=== PATIENT | male | born 1990 ===

== ENCOUNTER 2018-04-24 10:55 | Emergency (ER) | payer OTHER ==
[2018-04-24 10:59] VITALS: BMI 29.9
[2018-04-24] MEDS ORDERED: Piperacillin/Tazobact 3.375 GM in Sodium Chloride 0.9% 100 ML IVPB STA (12:11)
[2018-04-24] MEDS ORDERED: Vancomycin 1 g Inj ONE (12:19)
[2018-04-24] MEDS ORDERED: Piperacillin/Tazobact 3.375 gm Inj IVPB ONE (12:19)
--- NOTE | 2018-04-24 12:21 | ED PDOC ---
HPI: Skin/Bite Injury Time Seen by Provider: 04/24/18 11:21 Chief Complaint (Nursing): Back Pain History Per: Patient, Patient Care Director ([place] [id number]) Additional Complaint(s): Pt. states since Saturday he's had pain in the lower back area. States he's had the same exact pain intermittently over the past 5 years. Pt. had area drained in the operating room by Dr. Teague 5 years ago and since then he's had the pain yearly which is usually treated with oral medications (pt. does not know what type of medications he is given). He lost insurance recently and therefore he was unable to see his PMD for this episode but yesterday he took a medication for infection and inflammation without any relief. Pt. states he developed chills last night but did not take any temperature. Also reports noticing discharge. Denies trauma, numbness, tingling. Past Medical History Reviewed: Historical Data, Nursing Documentation, Vital Signs Vital Signs: Last Vital Signs Temp 98.9 F 04/24/18 16:19 Pulse 87 04/24/18 16:19 Resp 16 04/24/18 16:19 BP 131/82 04/24/18 16:19 Pulse Ox 96 04/24/18 17:55 - Medical History PMH: Denies: Chronic Kidney Disease - Surgical History Surgical History: Back Surgery (pilonidal abscess drainage) - Family History Family History: States: No Known Family Hx - Home Medications Home Medications: Ambulatory Orders Medication Instructions Recorded Amoxicillin/Clavulanate [Augmentin 1 tab PO BID #20 tab 04/24/18 875 MG-125 MG] - Allergies Allergies/Adverse Reactions: Allergies Allergy/AdvReac Type Severity Reaction Status Date / Time No Known Allergies Allergy Verified 04/24/18 11:18 Review of Systems ROS Statement: Except As Marked, All Systems Reviewed And Found Negative Physical Exam - Physical Exam Appears: Positive for: Well, In Acute Distress (moderate painful distress) Skin: Positive for: Normal Color, Warm. Negative for: Rash Eye Exam: Positive for: Normal appearance Gastrointestinal/Abdominal: Positive for: Normal Exam, Soft. Negative for: Tenderness Back: Positive for: Other (moderate erythema and tenderness with ? fluctuance and small opening in pilonidal area) Neurologic/Psych: Positive for: Alert, Oriented - Laboratory Results Result Diagrams: 04/24/18 12:45 04/24/18 12:45 - ECG O2 Sat by Pulse Oximetry: 96 - Progress ED Course And Treament: Pt. evaluated by Dr. Menchaca in ED. Labs, zosyn IV, vancomycin IV, morphine 2mg IV, zofran 4mg ODT ordered. Pt. evaluated by Dr. Mabry, resident hall director, who performed I&D and spoke with Dr. Teague. As per Dr. Mabry pt. can be dc'd with Augmentin and f/u in [facility] surgical clinic. Disposition - Clinical Impression Clinical Impression: Pilonidal abscess - Patient ED Disposition Is Patient to be Admitted: No - Disposition Referrals: Joe Montalvo MD [Staff Provider] - Doc Teague MD [Staff Provider] - Disposition: Routine/Home Disposition Time: 15:00 Condition: STABLE Additional Instructions: Follow up with [facility] for further evaluation Return to ED immediately if symptoms worsen Prescriptions: Amoxicillin/Clavulanate [Augmentin 875 MG-125 MG] 1 tab PO BID #20 tab Instructions: Abscess Incision and Drainage (DC), Pilonidal Cyst (DC) Forms: [employer] ([place]), [facility] School/Work Excuse Print Language: POLISH
[2018-04-24 12:58] LABS: VENOUS BLOOD GAS PCO2 53 mmHg (40-60); VENOUS BLOOD GAS PO2 21 mm/Hg (30-55); VENOUS BLOOD PH 7.37 (7.32-7.43)
[2018-04-24 13:00] LABS: BASO # 0.1 K/uL (0.0-0.2); BASO % 0.6 % (0.0-2.0); EOS % 0.2 % (0.0-4.0); HEMOGLOBIN 15.3 g/dL (12.0-18.0); LYMPH # 1.6 K/uL (1.0-4.3); MEAN CELL VOLUME 88.4 fl (80.0-94.0); MEAN CORPUSCULAR HEMOGLOBIN 30.4 pg (27.0-31.0); MEAN CORPUSCULAR HGB CONC 34.4 g/dL (33.0-37.0); MONO # 1.1 K/uL (0.0-0.8); NEUT # 11.4 K/uL (1.8-7.0); NEUT % 80.2 % (50.0-75.0); RBC 5.05 Mil/uL (4.40-5.90); RED CELL DISTRIBUTION WIDTH 13.3 % (11.5-14.5); WHITE BLOOD COUNT 14.2 K/uL (4.8-10.8)
[2018-04-24 13:05] LABS: ALB/GLOB RATIO 1.1 (1.0-2.1); ALBUMIN 4.1 g/dL (3.5-5.0); ALT/SGPT 55 U/L (21-72); AST/SGOT 36 U/L (17-59); BLOOD UREA NITROGEN 14 mg/dl (9-20); CALCIUM 8.9 mg/dL (8.4-10.2); GFR AFRICAN-AMERICAN > 60; GFR NON-AFRICAN AMERICAN > 60
--- NOTE | 2018-04-24 13:12 | CP.PCM.CON ---
History of Present Illness - History of Present Illness History of Present Illness: General Surgery Consult Note 27M seen in ED complaining of pain secondary to a pilonidal cyst on his lower back. Patient states that five years ago he had surgery performed at [facility] for an infected hair follicle and subsequently developed the pilonidal cyst following the surgery. He states that the cyst has caused him intermittent discomfort since that time and occasionally drains a clear/yellow fluid. Patient states that in 2015 he went to see his PMD about the pain and drainage and was told to follow up with a specialist which he never did. He states that this past Saturday the pain and drainage from the area began to increase greatly, making it hard to walk. A malodor also became present at that time. Patient states that he has not noticed any drainage in the last two days and feels that this is due to the increased swelling in the area. He denies any further complaints at this time. He states that over the last 48 hours he has had the chills and a headache but denies any N/V/F/CP/SOB/D. PMHx: Pilonidal cyst Meds: Denies All: NKDA PSH: I and D of infected hair follicle 2012 FHx: Non-contributory SHx: Denies tobacco use, social EtOH, denies drug use Review of Systems - Review of Systems All systems: reviewed and no additional remarkable complaints except Review of Systems: as per HPI Past Patient History - Past Social History Smoking Status: Never Smoked - CARDIAC Hx Cardiac Disorders: No - PULMONARY Hx Respiratory Disorders: No - NEUROLOGICAL Hx Neurological Disorder: No - HEENT Hx HEENT Problems: No - RENAL Hx Chronic Kidney Disease: No - ENDOCRINE/METABOLIC Hx Endocrine Disorders: No - HEMATOLOGICAL/ONCOLOGICAL Hx Blood Disorders: No - INTEGUMENTARY Hx Dermatological Problems: No - MUSCULOSKELETAL/RHEUMATOLOGICAL Hx Musculoskeletal Disorders: Yes Hx Back Pain: Yes - GASTROINTESTINAL Hx Gastrointestinal Disorders: No - GENITOURINARY/GYNECOLOGICAL Hx Genitourinary Disorders: No - PSYCHIATRIC Hx Psychophysiologic Disorder: No Hx Substance Use: No - SURGICAL HISTORY Hx Surgeries: Yes - ANESTHESIA Hx Anesthesia: Yes Hx Anesthesia Reactions: No Hx Malignant Hyperthermia: No Meds Home Medications: Home Medication List Medication Instructions Recorded Confirmed Type Amoxicillin/Clavulanate [Augmentin 1 tab PO BID #20 tab 04/24/18 Rx 875 MG-125 MG] Allergies/Adverse Reactions: Allergies Allergy/AdvReac Type Severity Reaction Status Date / Time No Known Allergies Allergy Verified 04/24/18 11:18 - Medications Medications: Current Medications Vancomycin HCl 1 gm/ Sodium (Chloride) 250 mls @ 166.667 mls/hr IVPB STAT STA PRN Reason: Protocol Stop: 04/24/18 13:40 Piperacillin Sod/Tazobactam (Sod 3.375 gm/ Sodium Chloride) 100 mls @ 100 mls/ hr IVPB STAT STA PRN Reason: Protocol Stop: 04/24/18 13:10 Last Admin: 04/24/18 12:35 Dose: 100 mls/hr Physical Exam - Constitutional Appears: Well, Non-toxic, No Acute Distress - Head Exam Head Exam: ATRAUMATIC, NORMOCEPHALIC - Eye Exam Eye Exam: EOMI, PERRL Pupil Exam: NORMAL ACCOMODATION, PERRL - ENT Exam ENT Exam: Mucous Membranes Moist, Normal Exam - Neck Exam Neck exam: Positive for: Full Rom. Negative for: Tenderness - Respiratory Exam Respiratory Exam: NORMAL BREATHING PATTERN. absent: Respiratory Distress - GI/Abdominal Exam GI & Abdominal Exam: Soft. absent: Distended, Firm, Guarding, Tenderness - Rectal Exam Rectal Exam: Deferred - Neurological Exam Neurological exam: Alert, Oriented x3 - Psychiatric Exam Psychiatric exam: Normal Affect, Normal Mood - Skin Additional comments: Well healed cicatrix from previous surgery noted to sacral area No drainage or malodor noted at this time Severe pain on palpation and mild fluctuance noted to site Results - Vital Signs Recent Vital Signs: Last Vital Signs Temp 99.4 F 04/24/18 11:00 Pulse 100 H 04/24/18 11:00 Resp 16 04/24/18 11:00 BP 151/81 H 04/24/18 11:00 Pulse Ox 96 04/24/18 12:31 - Labs Result Diagrams: 04/24/18 12:45 04/24/18 12:45 Labs: Laboratory Results - last 24 hr 04/24/18 04/24/18 04/24/18 12:45 12:45 12:52 WBC 14.2 H RBC 5.05 Hgb 15.3 Hct 44.6 MCV 88.4 MCH 30.4 MCHC 34.4 RDW 13.3 Plt Count 316 MPV 7.0 L Neut % (Auto) 80.2 H Lymph % (Auto) 11.0 L Sawyer % (Auto) 8.0 Eos % (Auto) 0.2 Baso % (Auto) 0.6 Neut # (Auto) 11.4 H Lymph # (Auto) 1.6 Sawyer # (Auto) 1.1 H Eos # (Auto) 0.0 Baso # (Auto) 0.1 pO2 21 L VBG pH 7.37 VBG pCO2 53 VBG HCO3 26.3 VBG Total CO2 32.2 H VBG O2 Sat (Calc) 36.0 L VBG Base Excess 4.0 H VBG Potassium 3.8 Glucose 98 Lactate 0.8 FiO2 21.0 Sodium 141 137.0 Potassium 3.9 Chloride 101 102.0 Carbon Dioxide 24 Anion Gap 20 BUN 14 Creatinine 0.8 Est GFR ( Amer) > 60 Est GFR (Non-Af Amer) > 60 Random Glucose 93 Calcium 8.9 Total Bilirubin 0.8 AST 36 ALT 55 Alkaline Phosphatase 58 Total Protein 7.7 Albumin 4.1 Globulin 3.6 Albumin/Globulin Ratio 1.1 Venous Blood Potassium 3.8 Assessment & Plan - Assessment and Plan (Free Text) Assessment: 27M seen for pilonidal cyst Plan: WBC 14.2 Afebrile Pt to be DC w/ pain meds, abx To follow up in clinic for surgical scheduling - Date & Time Date: 04/24/18 Time: 17:19
[2018-04-24] MEDS ORDERED: Lidocaine 1% Inj (20ml) IJ ONE (14:51)
[2018-04-24] MEDS ORDERED: HYDROmorphone 0.5 mg/0.5 ml ISec IVP STA (14:51)
[2018-04-24] MEDS ORDERED: Lidocaine 1% Inj (20ml) ONE (14:55)
[2018-04-24] MEDS ORDERED: HYDROmorphone 0.5 mg/0.5 ml ISec ONE (14:55)
[2018-04-24 16:21] VITALS: BP 131/82; PULSE 87; RESP 16; TEMP 98.9
[2018-04-24 17:54] VITALS: O2SAT 96
== END 2018-04-24 16:52 | disposition home or self-care (01) ==
LOC: H.ER 10:55
DX: L05.91 Pilonidal cyst without abscess (principal)
CPT/HCPCS: 80053; 82803; 85025; 87040; 96374; 96375; 99285; J1170; J2270; J2543